=== PATIENT | male | born 1965 | race Caucasian/White ===

== ENCOUNTER 2017-11-13 19:26 | Inpatient (IN) | payer MEDICAID ==
[~2017-11-13] VITALS: Ht 167.6 cm; Wt 58.7 kg
[2017-11-13 20:49] LABS: BASOPHIL % 1.1 % (0-2); PLATELET COUNT 150 x10^3mcL (130-400); RED CELL DISTRIBUTION WIDTH 13.9 % (11.5-14.5)
[2017-11-13 20:55] LABS: CALCIUM 8.7 mg/dL (8.5-10.1); CARBON DIOXIDE 27.1 mmol/L (21-32); CHLORIDE SERUM 104 mmol/L (98-107); CREATININE SERUM 1.1 mg/dL (0.7-1.3); GFR1 > 60 mL/min; GLUCOSE SERUM 94 mg/dL (74-106); POTASSIUM SERUM 3.5 mmol/L (3.5-5.1); SODIUM SERUM 143 mmol/L (136-145)
[2017-11-13 21:08] LABS: ALBUMIN 3.7 g/dL (3.4-5.0); ALKALINE PHOSPHATASE 90 U/L (46-116); ALT/SGPT 45 U/L (16-63); AST/SGOT 37 U/L (15-37); BILIRUBIN TOTAL 0.33 mg/dL (0.20-1.00); TOTAL PROTEIN, SERUM 8.1 g/dL (6.4-8.2)
[2017-11-13 21:22] LABS: UA SPECIFIC GRAVITY >=1.030 (1.005-1.035); microscopic required? YES; urine erythrocyte 1+ (NEGATIVE)
[2017-11-13 21:42] LABS: AMPHETAMINE QUAL UR POSITIVE (See below)
[2017-11-14] VITALS (7 sets, daily range): BP systolic 132–174; BP diastolic 65–84
[2017-11-14 01:00] LABS: MAGNESIUM 2.2 mg/dL (1.8-2.4); PHOSPHOROUS 4.4 mg/dL (2.5-4.9)
[2017-11-14 01:10] LABS: CHOLESTEROL/HDL RATIO 2.7
[2017-11-14] MEDS ORDERED: GOOD SENSE ASPI81 M3 PO (13:39)
[2017-11-14] MEDS ORDERED: SIMVASTATIN20 M1 PO (13:39)
[2017-11-14] MEDS ORDERED: LEVOFLOXACIN500 M1 PO (16:15)
[2017-11-14] MEDS ORDERED: CIPRO250 MG PO (16:39)
[2017-11-19 08:49] VITALS: Ht 167.6 cm; Wt 58.7 kg
== END 2017-11-14 18:36 | disposition home or self-care (01) | DRG 47 ==
LOC: ED 19:26 → DU 23:02 → MU 23:02 → DU 11-14 00:17
PROVIDERS: Emergency Medicine; Family Medicine
DX: G45.9 Transient cerebral ischemic attack, unspecified (principal); F12.10 Cannabis abuse, uncomplicated; I16.0 Hypertensive urgency; F14.10 Cocaine abuse, uncomplicated; N39.0 Urinary tract infection, site not specified; B96.29 Other Escherichia coli [E. coli] as the cause of diseases classified elsewhere; R47.1 Dysarthria and anarthria; F15.10 Other stimulant abuse, uncomplicated; Z59.0 Homelessness; Z68.21 Body mass index [BMI] 21.0-21.9, adult; F17.210 Nicotine dependence, cigarettes, uncomplicated
CPT/HCPCS: 83880; 84439; G0480; J7030; Q0092